=== PATIENT | male | born 1995 | race Hispanic/Latino ===

== ENCOUNTER 2022-01-28 07:08 | Emergency (ER) | payer BC, SELFPAY ==
[2022-01-28 08:09] LABS: #Basophils 0.1 thou/uL (0.0-0.2); #Lymphocytes 1.9 thou/uL (1.20-3.40); #Monocytes 0.3 thou/uL (0.11-0.59); %Eosinophils 0.6 % (0.0-10.0); %Lymphocytes 22.5 % (21.0-51.0); %Monocytes 3.2 % (0.0-10.0); %Neutrophils 72.8 % (42.0-75.0); Hemoglobin 15.6 g/dL (14.0-18.0); Mean Corpuscular HGB CONC 34.9 g/dL (32.0-36.0); Mean Corpuscular Hemoglobin 31.5 pg (27.0-31.0); Mean Corpuscular Volume 90.4 fL (78.0-98.0); Platelet Count 181 thou/uL (130-400); RBC Distribution Width 11.7 % (11.5-14.5); Red Blood Cell (RBC) Count 4.96 mill/uL (4.70-6.10); White Blood Cell (WBC) Count 8.3 thou/uL (4.8-10.8)
[2022-01-28 08:35] LABS: ALT (SGPT) 33 U/L (8-55); AST (SGOT) 20 U/L (5-34); Albumin 4.2 g/dL (3.5-5.0); Alkaline Phosphatase 80 U/L (40-110); Anion Gap 16 mmol/L (10-20); BUN (Urea Nitrogen) 13 mg/dL (8.9-20.6); Bilirubin, Total 0.2 mg/dL (0.2-1.2); Calc. Creatinine Clearance 0 mL/min (70-130); Calcium 9.2 mg/dL (7.8-10.44); Carbon Dioxide 19 mmol/L (22-29); Chloride 106 mmol/L (98-107); Estimated GFR 122; Globulin 4.2 g/dL (2.4-3.5); Glucose 117 mg/dL (70-105); Potassium 4.3 mmol/L (3.5-5.1); Protein, Total 8.4 g/dL (6.0-8.3); Sodium 137 mmol/L (136-145)
[2022-01-28] MEDS ORDERED: Ketorolac Tromethamine 30 MG/ML VIAL ONE (09:54)
[2022-01-28] MEDS ORDERED: Iopamidol-370 76% 500 ML 1 ML ONE (14:09)
== END 2022-01-28 11:43 | disposition home or self-care (01) ==
LOC: ERS 07:08
DX: R07.9 Chest pain, unspecified (principal); K76.0 Fatty (change of) liver, not elsewhere classified; R51.9 Headache, unspecified; R20.0 Anesthesia of skin; F17.210 Nicotine dependence, cigarettes, uncomplicated
CPT/HCPCS: 36415; 71045; 71275; 74174; 80053; 84484; 85025; 93005; 96374; J1885; Q9967